=== PATIENT | male | born 1980 | race Caucasian/White ===

== ENCOUNTER 2024-11-16 09:48 | Outpatient (AMB) | payer BC, SELFPAY ==
--- NOTE | 2024-11-16 10:09 | A.OFFPC_ITS ---
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 ?? Prior PCP:? Dr Rivas @ [facility] Last office visit/CPE:? about a year for CPE Acute issue(s):? Watching BP. Was on HCTZ in past. Need Rheumatology referral Est Care ?? PMHx:? HTN, HLD, RA SurgHx:?R 4th finger repair after crush injury FHx:? Mom: Macular degeneration. Dad: Dementia. SocHx: Nonsmoker of cigs. EtOH: Very infreq. 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 1. Little interest or pleasure in doing things: not at all 2. Feeling down, depressed, or hopeless: not at all 3. Trouble falling or staying asleep, or sleeping too much: not at all 4. Feeling tired or having little energy: not at all 5. Poor appetite or overeating: not at all 6. Feeling bad about yourself - or that you are a failure or have let yourself or your family down: not at all 7. Trouble concentrating on things, such as reading the newspaper or watching television: not at all 8. Moving or speaking so slowly that other people could have noticed. Or the opposite - being so fidgety or restless that you have been moving around a lot more than usual: not at all 9. Thoughts that you would be better off or of hurting yourself in some way: not at all Total score: 0 Depression Screening Interpretation: Negative Depression Screening Done: Yes 52696 - PHQ-9 Billing: Yes Source: Developed by Drs. Kush Eckert, Vanna Roman, Kalia Asencio and colleagues, with an educational tj from [employer]. Thrive Questionnaire Date Thrive assessed: 11/16/24 I am a: Patient What is your living situation today?: I have a steady place to live Within the past 12 months, did the food you bought not last and you didn't have the money to get more?: Never true Within the past 12 months, did you worry whether your food would run out before you got money to buy more?: Never true Do you have trouble paying for medicines?: No Do you have trouble getting transportation to medical appointments?: No Do you have trouble paying your heating and electricity bill?: No Do you have trouble taking care of your child, family member or friend?: No Do you have trouble with day-to-day activities such as bathing, preparing meals, shopping, managing finances, etc.?: No Are you currently unemployed and looking for a job?: No Are you interested in more education?: No Please select the resources that you would like help with: None Currently or been in a relationship where the following occur: No concerns reported THRIVE Score: 0 AUDIT C Alcohol Use Questionnaire (AUDIT-C) 1. How often do you have a drink containing alcohol?: Never 3. How often do you have six or more drinks on one occasion?: Never Total Score: 0 Score Reviewed/Action Taken: Yes SPEEDY-7 AMB Questionnaire SPEEDY-7 Date SPEEDY - 7 assessed: 11/16/24 Feeling nervous, anxious, or on edge: 0 = Not at all Not being able to stop or control worryin = Not at all Worrying too much about different things: 0 = Not at all Trouble relaxin = Not at all Being so restless that it is hard to sit still: 0 = Not at all Becoming easily annoyed or irritable: 1 = Several days Feeling afraid as if something awful might happen: 0 = Not at all Total SPEEDY-7 score (0-4 normal; 5-9 mild; 10-14 moderate; 15-21 severe): 1 Source: Developed by Drs. Kush Eckert, Vanna Roman, Kalia Asencio and colleagues, with an educational tj from [employer]. SPEEDY-7 Assessment Billing SPEEDY-7 Assessment Tool: SPEEDY-7 Assessment 45540 Review of Systems Const Denies chills, Denies fatigue, Denies fever(s), Denies headache(s) and Denies weakness Eyes Denies change in vision ENT Denies dizziness and Denies headache(s) Card Denies chest pain, Denies lightheadedness, Denies dyspnea and Denies other (Pa lpitations) Resp Denies cough, Denies dyspnea, Denies wheezing and Denies other ( shortness of breath) GI Denies abdominal pain, Denies melena, Denies hematochezia, Denies change in bowel habits, Denies dyspepsia and Denies nausea Denies hematuria and Denies dysuria Musc Denies numbness and Denies tingling Skin/Breast Denies rash, Denies unusual bruising and Denies wounds Neuro Denies dizziness, Denies headache(s), Denies numbness, Denies Sensory deficit (Neuro), Denies tingling, Denies paresthesias and Denies weakness Psych Denies anxiety and Denies depression Endo Denies fatigue Thien/Lymph Denies easy bleeding and Denies easy bruising Aller/Immun Denies wheezing Physical exam (Primary Care) Tobacco/Smoking Status: Tobacco use Status Tobacco use date assessed 11/16/24 11/16/24 10:14 Patient Tobacco Use Status Never used Tobacco 11/16/24 10:21 PHQ-9: PHQ-9 Score PHQ-9: Total score 0 11/16/24 10:14 Depression Screening Interpretation: Negative Thrive Assessment: Date of Thrive Assessment Date Thrive assessed 11/10/24 11/16/24 10:14 Currently or been in a relationship where the following occur: No concerns reported Const General: no acute distress and well developed Nutritional Appearance: well nourished Orientation/consciousness: patient oriented x3 HENMT Head: Yes normocephalic and Yes atraumatic Ears: hearing grossly normal bilaterally and TM's normal bilaterally General nose exam: Normal external nose present and Normal nares present Mouth: Normal oral and palatal mucosa present and moist mucous membranes Teeth and gingiva: dentition normal Throat: Yes posterior oropharynx normal Eyes General: appearance normal, both eyes and all related structures Pupils: Equal, round and reactive pupils present EOM: EOMs intact bilaterally Neck Neck: Yes normal visual inspection, Yes no lymphadenopathy and Yes trachea midline Thyroid: Thyroid normal Carotids: no bruits Lymphatic: no lymphadenopathy noted Chest Chest palpation & inspection: normal inspection of the chest Resp Effort & Inspection: normal respiratory effort Auscultation: clear to auscultation bilaterally Cardio Rate: regular rate Rhythm: regular rhythm Heart sounds: S1 normal heart sound present, S2 normal heart sound present, no gallops, no murmurs and no rubs Bruits: no abdominal aortic bruits and no carotid bruits GI Palpation (GI): No Abdominal aortic bruit present, Soft to palpation, nontender, No hepatosplenomegaly present and No Rebound tenderness present Auscultation: normal bowel sounds General: Yes no CVA tenderness Back/Spine/Pelvis Back: no CVA tenderness Cervical Spine: cervical ROM normal and No Cervical spine tenderness Thoracic/Lumbar Spine: thoraco-lumbar ROM normal, No pain with thoraco-lumbar ROM, No thoracic spinal tenderness and No lumbar spinal tenderness Skin Lesions: no lesions Rashes: no rashes Trauma: no lacerations or abrasions Wounds: no wounds Nails: normal Neuro General: patient oriented x3 and gait normal Cranial nerves: Yes Equal, round and reactive pupils present Cognition (Neuro): normal cognition Gait exam (Neuro): Normal gait present Motor exam (neuro): 5/5 motor strength present throughout Sensory Exam: No Sensory deficit (Neuro) Deep tendon reflexes (DTR's): Right patellar reflex intensity grade: 2+ and Left patellar reflex intensity grade: 2+ Extrem General: Yes normal to inspection and No edema Psych Appearance: grossly normal Affect: normal affect Attitude: cooperative Thought process: Normal thought process present Coding Level of Care Code New Pt Level 4 (07190) Diagnoses High blood pressure I10 Rheumatoid arthritis M06.9 Hyperlipidemia E78.5 Screening for prostate cancer Z12.5 Laboratory exam ordered as part of routine general medical examination Z00.00 Adult general medical exam Z00.00 Additional Codes SPEEDY-7 Assessment Billing - SPEEDY-7 Assessment Tool: SPEEDY-7 Assessment 95564 ([id number]) PHQ-9 - 03368 - PHQ-9 Billing: Yes ([id number]) Assessment & Plan Assessment & Plan (1) High blood pressure: Code(s): I10 - Essential (primary) hypertension Category: Medical Plan: Patient?notes?history?of?hypertension?though?blood?pressure is?within?normal?range?without?medication?today. He?will?return?in?about?a?week?for?nurse?visit?to?recheck?blood?pressure (2) Rheumatoid arthritis: Code(s): M06.9 - Rheumatoid arthritis, unspecified Category: Medical Plan: Patient?notes?history?of?rheumatoid?arthritis?and?had?been?treated?in?[facility] He?would?like?a?new?referral?to?a?rocket propellant plant supervisor Referred (3) Hyperlipidemia: Code(s): E78.5 - Hyperlipidemia, unspecified Category: Medical Plan: Patient?notes?history?of?hyperlipidemia?and?was?on?atorvastatin?in?the?past Checking?lipids (4) Screening for prostate cancer: Code(s): Z12.5 - Encounter for screening for malignant neoplasm of prostate Category: Medical Plan: Checking?PSA (5) Laboratory exam ordered as part of routine general medical examination: Code(s): Z00.00 - Encounter for general adult medical examination without abnormal findings Category: Medical Plan: Check labs (6) Adult general medical exam: Code(s): Z00.00 - Encounter for general adult medical examination without abnormal findings Category: Medical Plan: 44-year-old?male?presents?as?new?patient?for?an?extended?exam Encouraged?healthy?diet?with?active?lifestyle?and?plenty?of?exercise Orders: Orders Prostate Specific Antigen Scr Today Z12.5 - Encounter for screening for malignant neoplasm of prostate Lipid Panel Today Z00.00 - Encounter for general adult medical examination without abnormal findings UA CC w/rflx Micro + Cult Today Z00.00 - Encounter for general adult medical examination without abnormal findings Comprehensive [place]. Panel Fast Today Z00.00 - Encounter for general adult medical examination without abnormal findings Microalbumin, Random (w Creat) Today I10 - Essential (primary) hypertension TSH reflex Free T4 Today Z00.00 - Encounter for general adult medical examination without abnormal findings Referrals Rheumatology Referral M06.9 - Rheumatoid arthritis, unspecified
[2024-11-16 10:22] VITALS: BP 110/70; PULSE 75; RESP 14; TEMP 36.7; BMI 28.6
== END 2024-11-16 10:47 | disposition home or self-care (01) ==
LOC: HO.HMCFM 09:49
PROVIDERS: PCP Family Medicine; Visit Provider Family Medicine
DX: I10 Essential (primary) hypertension (principal); M06.9 Rheumatoid arthritis, unspecified; E78.5 Hyperlipidemia, unspecified; Z12.5 Encounter for screening for malignant neoplasm of prostate; Z00.00 Encounter for general adult medical examination without abnormal findings

== ENCOUNTER → 2024-11-16 09:48 | Outpatient (BNVA) | payer BC, SELFPAY | PROVIDERS: PCP Family Medicine; Visit Provider Family Medicine | DX: Z00.00 Encounter for general adult medical examination without abnormal findings (principal); I10 Essential (primary) hypertension; M06.9 Rheumatoid arthritis, unspecified; E78.5 Hyperlipidemia, unspecified | CPT/HCPCS: 96127 ==

== ENCOUNTER → 2024-11-21 09:53 | Outpatient (BNVA) | payer BC, SELFPAY | PROVIDERS: PCP Family Medicine; Visit Provider Family Medicine | DX: Z13.89 Encounter for screening for other disorder (principal) ==

== ENCOUNTER 2024-11-30 10:48 | Outpatient (REF) | payer BC, SELFPAY ==
[2024-11-30 14:17] LABS: Appearance Urine Clear; Color Urine Yellow; Glucose Urine UA Negative (Negative); Leukocyte Esterase Urine Negative (Negative); Nitrite Urine Negative (Negative); PH 5.5 (5.0-9.0); Urine Blood Negative (Negative); Urine Ketones Negative (Negative); Urine Protein Negative (Neg-Trace)
[2024-11-30 14:37] LABS: Creatinine Urine 203.69 mg/dL; Microalbum/Creatinine Ratio Ur 11.2 ug/mg cr (<30)
[2024-11-30 14:45] LABS: Alanine Aminotransferase 17 U/L (0-40); Alkaline Phosphatase 69 U/L (39-117); Aspartate Amino Transferase 21 U/L (5-37); Bilirubin Total 0.6 mg/dL (0.0-1.0); Blood Urea Nitrogen 10 mg/dL (9-16); Calcium 8.7 mg/dL (8.4-10.2); Cholesterol 196 mg/dL (<200); Estimated Glomerular Filt Rate > 60; Glucose Fasting 77 mg/dL (60-99); HDL Cholesterol 32 mg/dL (>40); LDL Cholesterol Calculated 139 mg/dL (<100); Total Protein 6.5 g/dL (6.5-8.0); Triglycerides 126 mg/dL (<150)
[2024-11-30 14:56] LABS: Prostate Specific Antigen Scr 0.54 ng/mL (<0.05-4.0)
[2024-11-30 15:01] LABS: Anion Gap 9 (12-20); Carbon Dioxide 30 mmol/L (22-29); Chloride 106 mmol/L (96-108); Potassium 3.5 mmol/L (3.3-5.1); Sodium 141 mmol/L (135-145)
[2024-11-30 15:08] LABS: TSH reflex Free T4 1.37 uIU/mL (0.32-4.0)
== END 2024-11-30 10:49 | disposition home or self-care (01) ==
LOC: HO.WFDLDS 10:48
PROVIDERS: Visit Provider Family Medicine
DX: Z00.00 Encounter for general adult medical examination without abnormal findings (principal); I10 Essential (primary) hypertension; Z12.5 Encounter for screening for malignant neoplasm of prostate
CPT/HCPCS: 36415; 80053; 80061; 81003; 82043; 82570; 84153; 84443

== ENCOUNTER 2024-12-07 09:58 | Outpatient (AMB) | payer BC, SELFPAY ==
--- NOTE | 2024-12-07 09:57 | A.OFFPC_ITS ---
Intake Visit Reasons: f/u CPE-labs via telemed Allergies No Known Allergies Allergy (Verified 12/07/24 09:57) Medication List - Last Reconciled 12/07/24 by David Christianson MD No Known Home Meds Tobacco use date assessed: 11/16/24 Dental Screening Dental Screen Date: 11/16/24 HPI f/u CPE-labs via telemed HPI Details 44 y/o male presents to f/u CPE-labs via telemedicine. Labs drawn 11/30/24. Reviewed labs with pt. Triglycerides 126. TC 196. LDL 139. HDL low at 32. PSA 0.54. 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 Kush Eckert, Vanna Roman, Kalia Asencio and colleagues, with an educational tj from [email or web address]. Review of Systems Const Denies chills, Denies fatigue, Denies fever(s), Denies headache(s) and Denies weakness ENT Denies dizziness and Denies headache(s) Card Denies dyspnea Resp Denies cough, Denies dyspnea, Denies wheezing and Denies other (shortness of breath) Musc Denies numbness and Denies tingling Neuro Denies dizziness, Denies headache(s), Denies numbness, Denies tingling and Denies weakness Psych Denies anxiety and Denies depression Endo Denies fatigue Aller/Immun Denies wheezing Physical exam (Primary Care) Tobacco/Smoking Status: Tobacco use Status Tobacco use date assessed 11/16/24 12/07/24 09:57 Patient Tobacco Use Status Never used Tobacco 12/07/24 09:57 e-Cigarette/Vaping Use Never Used 12/07/24 09:57 Thrive Assessment: Date of Thrive Assessment Date Thrive assessed 11/10/24 12/07/24 09:57 Telehealth Telehealth Telehealth Platform: Telephone Location of provider rendering services: practice address Location of patient: address on file Patient Identification confirmed using: Name, : Yes Telehealth method: voice only Patient verbally consented to treatment: Yes Patient verbally consented to billing insurance company: Yes Patient informed of any privacy concerns related to visit: Yes Minutes spent on Phone/Video with Pt.: 7 Coding Level of Care Code Tele Est Pt Level 2 (79683) Diagnoses Hyperlipidemia E78.5 Low HDL (under 40) E78.6 Allergies T78.40XA Assessment & Plan Assessment & Plan (1) Hyperlipidemia: Code(s): E78.5 - Hyperlipidemia, unspecified Category: Medical Plan: LDL?cholesterol?is?too?high Advised?a?diet?lower?in?saturated?fats?and?cholesterol Continue?exercise Will?recheck?prior?to?next?visit (2) Low HDL (under 40): Code(s): E78.6 - Lipoprotein deficiency Category: Medical Plan: Encouraged?exercise?in?shifting?fats?in?diet?to?more?[place]?threes (3) Allergies: Code(s): T78.40XA - Allergy, unspecified, initial encounter Category: Medical Plan: Try?nasal?saline He?will?let?me?know?if?he?is?still?have?difficulty Orders: Orders Lipid Panel Today E78.6 - Lipoprotein deficiency, Z00.00 - Encounter for general adult medical examination without abnormal findings Comprehensive [place]. Panel Fast Today E78.6 - Lipoprotein deficiency, Z00.00 - Encounter for general adult medical examination without abnormal findings
== END 2024-12-07 17:05 | disposition home or self-care (01) ==
LOC: HO.HMCFM 09:58
PROVIDERS: PCP Family Medicine; Visit Provider Family Medicine
DX: E78.5 Hyperlipidemia, unspecified (principal); E78.6 Lipoprotein deficiency; T78.40XA Allergy, unspecified, initial encounter

== ENCOUNTER → 2024-12-07 09:58 | Outpatient (BNVA) | payer BC, SELFPAY | PROVIDERS: PCP Family Medicine; Visit Provider Family Medicine | DX: Z13.89 Encounter for screening for other disorder (principal) ==

== ENCOUNTER 2025-03-30 12:45 | Outpatient (REF) | payer BC, SELFPAY ==
[2025-03-30 18:01] LABS: Alanine Aminotransferase 25 U/L (0-40); Albumin Level 4.2 g/dL (3.5-5.0); Alkaline Phosphatase 63 U/L (39-117); Anion Gap 11 (12-20); Aspartate Amino Transferase 30 U/L (5-37); Blood Urea Nitrogen 11 mg/dL (9-16); Calcium 8.6 mg/dL (8.4-10.2); Carbon Dioxide 28 mmol/L (22-29); Chloride 105 mmol/L (96-108); Cholesterol 202 mg/dL (<200); Estimated Glomerular Filt Rate > 60; HDL Cholesterol 32 mg/dL (>40); Potassium 4.2 mmol/L (3.3-5.1); Sodium 140 mmol/L (135-145); Total Protein 6.5 g/dL (6.5-8.0); Triglycerides 96 mg/dL (<150)
== END 2025-03-30 12:46 | disposition home or self-care (01) ==
LOC: HO.WFDLDS 12:45
PROVIDERS: Visit Provider Family Medicine
DX: Z00.00 Encounter for general adult medical examination without abnormal findings (principal); E78.6 Lipoprotein deficiency
CPT/HCPCS: 36415; 80053; 80061

== ENCOUNTER 2025-04-09 09:28 | Outpatient (AMB) | payer BC, SELFPAY ==
--- NOTE | 2025-04-09 09:31 | MHC.PC.OV ---
Vital Signs 04/09/25 09:32 Height 5 ft 11 in Weight 198 lb BMI 27.6 BP 134/98 H Blood Pressure Location Rt brachial Position Sitting Pulse 88 Pulse Source Pulse Oximeter Pulse Oximetry (%) 99 Oxygen Delivery Method Room Air Intake Visit Reasons: f/u HLD Allergies No Known Allergies Allergy (Verified 04/09/25 09:34) Medication List - Last Reconciled 04/09/25 by David Christianson MD No Known Home Meds Tobacco use date assessed: 04/09/25 Dental Screening Dental Screen Date: 04/09/25 Did you have a dental visit in the last 12 months?: Yes Did you have a dental problem in the last 6 months where you did not have access to dental care?: No Was dental information given to patient?: Patient has dentist HPI f/u HLD HPI Details 44 y/o male presents to f/u HLD. Labs drawn 03/30/25. Reviewed labs with pt. Fasting glucose 109. Triglycerides 96. TC 202. LDL worsened from o 151. HDL low at 32. Blood pressure today elevated at 134/98, 88p. 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 1. Little interest or pleasure in doing things: not at all 2. Feeling down, depressed, or hopeless: not at all 3. Trouble falling or staying asleep, or sleeping too much: not at all 4. Feeling tired or having little energy: not at all 5. Poor appetite or overeating: not at all 6. Feeling bad about yourself - or that you are a failure or have let yourself or your family down: not at all 7. Trouble concentrating on things, such as reading the newspaper or watching television: not at all 8. Moving or speaking so slowly that other people could have noticed. Or the opposite - being so fidgety or restless that you have been moving around a lot more than usual: not at all 9. Thoughts that you would be better off or of hurting yourself in some way: not at all Total score: 0 Depression Screening Interpretation: Negative Depression Screening Done: Yes Source: Developed by Drs. Kush Eckert, Vanna Roman, Kalia Asencio and colleagues, with an educational tj from [employer]. Thrive Questionnaire Date Thrive assessed: 11/10/24 I am a: Patient What is your living situation today?: I have a steady place to live Within the past 12 months, did the food you bought not last and you didn't have the money to get more?: Never true Within the past 12 months, did you worry whether your food would run out before you got money to buy more?: Never true Do you have trouble paying for medicines?: No Do you have trouble getting transportation to medical appointments?: No Do you have trouble paying your heating and electricity bill?: No Do you have trouble taking care of your child, family member or friend?: No Do you have trouble with day-to-day activities such as bathing, preparing meals, shopping, managing finances, etc.?: No Are you currently unemployed and looking for a job?: No Are you interested in more education?: No Please select the resources that you would like help with: None Currently or been in a relationship where the following occur: No concerns reported THRIVE Score: 0 AUDIT C Alcohol Use Questionnaire (AUDIT-C) 1. How often do you have a drink containing alcohol?: Never 3. How often do you have six or more drinks on one occasion?: Never Total Score: 0 SPEEDY-7 AMB Questionnaire SPEEDY-7 Date SPEEDY - 7 assessed: 11/16/24 Feeling nervous, anxious, or on edge: 0 = Not at all Not being able to stop or control worryin = Not at all Worrying too much about different things: 0 = Not at all Trouble relaxin = Not at all Being so restless that it is hard to sit still: 0 = Not at all Becoming easily annoyed or irritable: 1 = Several days Feeling afraid as if something awful might happen: 0 = Not at all Total SPEEDY-7 score (0-4 normal; 5-9 mild; 10-14 moderate; 15-21 severe): 1 Source: Developed by Drs. Kush Eckert, Vanna Roman, Kalia Asencio and colleagues, with an educational tj from [employer]. Review of Systems Const Denies chills, Denies fatigue, Denies fever(s), Denies headache(s) and Denies weakness ENT Denies dizziness and Denies headache(s) Card Denies dyspnea Resp Denies cough, Denies dyspnea, Denies wheezing and Denies other (shortness of breath) Musc Denies numbness and Denies tingling Neuro Denies dizziness, Denies headache(s), Denies numbness, Denies tingling and Denies weakness Psych Denies anxiety and Denies depression Endo Denies fatigue Aller/Immun Denies wheezing Physical exam (Primary Care) Vital Signs: Last Vital Signs Pulse 88 04/09/25 09:32 BP 134/98 H 04/09/25 09:32 Pulse Ox 99 04/09/25 09:32 Oxygen Delivery Method Room Air 04/09/25 09:32 BMI result Body Mass Index 27.6 Tobacco/Smoking Status: Tobacco use Status Tobacco use date assessed 04/09/25 04/09/25 09:35 Patient Tobacco Use Status Never used Tobacco 04/09/25 09:35 e-Cigarette/Vaping Use Never Used 04/09/25 09:35 PHQ-9: PHQ-9 Score PHQ-9: Total score 0 04/09/25 09:38 Depression Screening Interpretation: Negative Thrive Assessment: Date of Thrive Assessment Date Thrive assessed 11/10/24 04/09/25 09:35 Currently or been in a relationship where the following occur: No concerns reported Const General: well developed; No acute distress Nutritional Appearance: well nourished Orientation/consciousness: patient oriented x3 HENMT Head: Yes normocephalic and Yes atraumatic Eyes General: appearance normal, both eyes and all related structures Pupils: Equal, round and reactive pupils present EOM: EOMs intact bilaterally Resp Effort & Inspection: normal respiratory effort Neuro General: patient oriented x3 and gait normal Cranial nerves: Yes Equal, round and reactive pupils present Psych Affect: normal affect Coding Level of Care Code Est Pt Level 4 (89853) Diagnoses Hyperlipidemia E78.5 High blood pressure I10 Low HDL (under 40) E78.6 Elevated fasting glucose R73.01 Assessment & Plan Assessment & Plan (1) Hyperlipidemia: Code(s): E78.5 - Hyperlipidemia, unspecified Category: Medical Plan: LDL cholesterol is due to high and HDL is low Start atorvastatin Encouraged exercise and diet low in saturated fats and cholesterol (2) High blood pressure: Code(s): I10 - Essential (primary) hypertension Category: Medical Plan: Blood pressure is elevated and patient notes that blood pressures are high at home as well Start losartan (3) Low HDL (under 40): Code(s): E78.6 - Lipoprotein deficiency Category: Medical Plan: As above (4) Elevated fasting glucose: Code(s): R73.01 - Impaired fasting glucose Category: Medical Plan: Mildly elevated fasting blood sugar. Will recheck this along with an A1c at his next blood draw Orders: Orders Lipid Panel Today E78.6 - Lipoprotein deficiency, Z00.00 - Encounter for general adult medical examination without abnormal findings Comprehensive [place]. Panel Fast Today E78.6 - Lipoprotein deficiency, Z00.00 - Encounter for general adult medical examination without abnormal findings Microalbumin, Random (w Creat) Today I10 - Essential (primary) hypertension Hemoglobin A1c Today R73.01 - Impaired fasting glucose Medications: New losartan 50 mg PO DAILY 90 tabs 3RF 90 days atorvastatin (Lipitor) 20 mg PO BEDTIME 90 tabs 3RF 90 days
[2025-04-09 09:32] VITALS: BP 134/98; PULSE 88; O2SAT 99; BMI 27.6
== END 2025-04-09 10:09 | disposition home or self-care (01) ==
LOC: HO.HMCFM 09:28
PROVIDERS: PCP Family Medicine; Visit Provider Family Medicine
DX: E78.5 Hyperlipidemia, unspecified (principal); I10 Essential (primary) hypertension; E78.6 Lipoprotein deficiency; R73.01 Impaired fasting glucose

== ENCOUNTER 2025-07-03 10:50 | Outpatient (AMB) | payer BC, SELFPAY ==
--- NOTE | 2025-07-03 11:02 | MHC.OFFVIS ---
Vital Signs 07/03/25 11:03 Height 5 ft 11 in Weight 194 lb 3.636 oz BMI 27.1 BP 132/72 Blood Pressure Location Lt brachial Position Sitting Pulse 75 Pulse Source Pulse Oximeter Pulse Oximetry (%) 99 Oxygen Delivery Method Room Air Intake Visit Reasons: RA Intake Note: New patient presents today for a RA visit. He was referred by PCP, Dr. Christianson. Property Damage Claims Adjustor Required: No Accompanied by: Self / Same As Patient Allergies shellfish derived (shellfish) Allergy (Mild, Verified 07/03/25 11:08) lip swelling HPI HPI RA: Details: New patient visit for evaluation of rheumatoid arthritis. He was diagnosed with RA at [facility] 3-4 years ago. He was treated with diclofenac gel. He denies being on DMARDs. He initially had pain and swelling in DIPs, and left 5th PIP. He is no longer able to bend left 5th finger. He has right thumb IP pain with nodule formed more recently. He takes ibuprofen 600mg-800 mg PRN few times a week. He uses diclofenac gel 1% 1-2 times every few days. No family history of rheumatological disease. Work at [employer]. 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 Non smoker. Rarely drinks alcohol. He fractured right 4th tip of finger in the past treated with splinting. Medication list and medical history reviewed with patient. 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 Good respiratory effort Skin: No lesions seen MSK:Tender right 5th and 2nd PIP. Right 5th PIP mild synovitis. Multiple [place] nodes of bilateral hands. He has a fluctuant cyst present right IP joint. He is able to make a fist. Slight ulnar deviation of left fingers. Normal range of motion of upper extremities and lower extremities. No MTP tenderness. Assessment & Plan Assessment & Plan (1) Rheumatoid arthritis: Comment: By history. DMARD naive. Clinically, he has mild synovitis of right 5th PIP, which could also be related to osteoarthritis. He has clinical malena osteoarthritis on exam. Code(s): M06.9 - Rheumatoid arthritis, unspecified Category: Medical Plan: X-ray bilateral hands ordered Labs ordered for evaluation of inflammatory arthritis OT ordered to improve range of motion and strengthen hands He will continue to use ibuprofen 600 mg prn sparingly joint pain. We discussed regular use of NSAIDs can contribute to hypertension as a side effect Return to clinic in 3 months or sooner if needed (2) Osteoarthritis of hands, bilateral: Comment: Clinical diagnosis. We discussed diagnosis and management. Code(s): M19.041 - Primary osteoarthritis, right hand; M19.042 - Primary osteoarthritis, left hand Category: Medical Plan: OT ordered to improve range of motion and hand strength He will continue to use ibuprofen 600 mg prn sparingly joint pain. We discussed regular use of NSAIDs can contribute to hypertension as a side effect Bilateral hand x-rays ordered Return to clinic in 3 months or sooner if needed Orders: Orders XR Foot Juan 3V Today M06.9 - Rheumatoid arthritis, unspecified Alanine Aminotransferase Today M06.9 - Rheumatoid arthritis, unspecified Aspartate Amino Transferase Today M06.9 - Rheumatoid arthritis, unspecified C Reactive Protein Today M06.9 - Rheumatoid arthritis, unspecified, Z79.899 - Other fci (current) drug therapy Complete Blood Count Auto Diff Today M06.9 - Rheumatoid arthritis, unspecified Creatinine Today M06.9 - Rheumatoid arthritis, unspecified Rheumatoid Factor Today M06.9 - Rheumatoid arthritis, unspecified OT Evaluation and Treatment Today M19.041 - Primary osteoarthritis, right hand, M19.042 - Primary osteoarthritis, left hand XR Hand Juan 2V Today M06.9 - Rheumatoid arthritis, unspecified Cyclic Citrullinated Peptide Today M06.9 - Rheumatoid arthritis, unspecified Erythrocyte Sedimentation Rate Today M06.9 - Rheumatoid arthritis, unspecified, Z79.899 - Other longwall foreman (current) drug therapy Hepatitis B,C Profile Today M06.9 - Rheumatoid arthritis, unspecified Coding Level of Care Code New Pt Level 4 (36511) Diagnoses Rheumatoid arthritis M06.9 Osteoarthritis of hands, bilateral M19.041; M19.042
[2025-07-03 11:03] VITALS: BP 132/72; PULSE 75; O2SAT 99; BMI 27.1
== END 2025-07-03 11:47 | disposition home or self-care (01) ==
LOC: HO.RHES 10:51
PROVIDERS: PCP Family Medicine; Visit Provider Internal Medicine Rheumatology
DX: M06.9 Rheumatoid arthritis, unspecified (principal); M19.041 Primary osteoarthritis, right hand; M19.042 Primary osteoarthritis, left hand
CPT/HCPCS: 99204

== ENCOUNTER 2025-07-03 10:50 | Outpatient (REF) | payer BC, SELFPAY ==
[2025-07-03 18:03] LABS: MANUAL DIFF FLAG NO
[2025-07-03 18:27] LABS: Hematocrit 44.3 % (42.0-52.0); Hemoglobin 15.1 g/dl (14.0-18.0); Imm Gran Abs Auto 0.01 X10*3/uL (0.00-0.03); Imm Gran Pct Auto 0.2 % (0.0-0.4); Lymphocytes Absolute Auto 1.8 X10*3/uL (1.2-4.9); Mean Corpuscular HGB Conc 34.1 g/dl (31.0-36.0); Mean Corpuscular Hemoglobin 29.9 pg (27.0-33.0); Mean Corpuscular Volume 87.7 fL (80.0-98.0); NRBC Abs Auto 0.000 X10*3/uL (0.0-0.012); NRBC Pct Auto 0.0 /100WBC (0.0-0.2); Platelet Count 240 X10*3/uL (160-400); Red Blood Count 5.05 X10*6/uL (4.60-5.80); White Blood Count 5.6 X10*3/uL (4.8-10.8)
[2025-07-03 18:35] LABS: Alanine Aminotransferase 45 U/L (0-40); Aspartate Amino Transferase 32 U/L (5-37); Estimated Glomerular Filt Rate > 60
[2025-07-04 07:04] LABS: HBS Num1 5.28 mIU/mL (0-7.99); HBc Num1 0.16 S/CO (0.00-0.79); HBsAGNum1 0.42 S/CO (0.00-0.99); Hepatitis B Surface Antigen Negative (Negative); ~HepC Num1 0.13 S/CO (0.00-0.79); ~Hepatitis B Surface Antibody NONREACTIVE (Nonreactive); ~Hepatitis C Antibody Nonreactive (Nonreactive)
== END 2025-07-03 10:51 | disposition home or self-care (01) ==
LOC: HO.HKASLDS 10:50
PROVIDERS: PCP Family Medicine; Visit Provider Internal Medicine Rheumatology
DX: M19.041 Primary osteoarthritis, right hand (principal); M19.042 Primary osteoarthritis, left hand; M06.9 Rheumatoid arthritis, unspecified; I10 Essential (primary) hypertension; Z79.899 Other long term (current) drug therapy
CPT/HCPCS: 36415; 82565; 84450; 84460; 85025; 85652; 86140; 86200; 86431; 86704; 86706; 86803; 87340

== ENCOUNTER 2025-07-04 11:04 | Outpatient (REF) | payer BC, SELFPAY ==
--- NOTE | ~2025-07-04 | XR_ITS ---
EXAMINATION: X-ray bilateral feet CLINICAL INFORMATION: Rheumatoid arthritis COMPARISON: None TECHNIQUE: Right foot 3 views. Left foot 3 views. FINDINGS: Right foot: No fracture or dislocation. No significant joint space narrowing or marginal osteophytes. No osseous erosion. No abnormal soft tissue calcification. Small posterior calcaneal enthesopathy. Left foot: No fracture or dislocation. No significant joint space narrowing or marginal osteophytes. No osseous erosion. No abnormal soft tissue calcification. Plantar and posterior calcaneal enthesopathy. XR/XR Foot Juan 3V IMPRESSION: No acute findings Electronically signed by: Salvador Fuentes MD 07/04/2025 12:20 PM [facility]
--- NOTE | ~2025-07-04 | XR_ITS ---
EXAMINATION: XR HAND, bilateral CLINICAL INFORMATION: M06.9 - Rheumatoid arthritis, unspecified COMPARISON: None available. TECHNIQUE: 3 views of each hand FINDINGS: Left hand: Bone alignment is normal. No fracture or dislocation. Severe osteoarthritis at the IP joints, greatest involving the DIP joints of the second through fifth fingers. No erosions. Soft tissues are unremarkable. Right hand: Bone alignment is normal. No fracture or dislocation. Severe osteoarthritis at the IP joints, greatest involving the DIP joints of the second through fifth fingers. No erosions. Soft tissues are normal. XR/XR Hand Juan 2V IMPRESSION: Severe osteoarthritis at the IP joints. Electronically signed by: Micki Sanon MD 07/04/2025 12:59 PM EST
== END 2025-07-04 11:05 | disposition home or self-care (01) ==
LOC: HO.HMGCLDS 11:04
PROVIDERS: PCP Family Medicine; Visit Provider Internal Medicine Rheumatology
DX: M06.9 Rheumatoid arthritis, unspecified (principal)
CPT/HCPCS: 73120; 73630

== ENCOUNTER → 2025-07-04 11:07 | Outpatient (BNV) | payer BC, SELFPAY | PROVIDERS: PCP Family Medicine; Visit Provider Radiology Diagnostic Ultrasound | DX: M06.9 Rheumatoid arthritis, unspecified (principal); M19.041 Primary osteoarthritis, right hand; M19.042 Primary osteoarthritis, left hand | CPT/HCPCS: 73120; 73630 ==

== ENCOUNTER 2025-07-20 11:22 | Outpatient (AMB) | payer BC, SELFPAY ==
--- NOTE | 2025-07-20 11:50 | A.OFFPC_ITS ---
Vital Signs 07/20/25 11:54 Height 5 ft 11 in Weight 196 lb BMI 27.3 BP 126/78 Blood Pressure Location Rt brachial Position Sitting Respiration 15 Pulse 82 Pulse Source Pulse Oximeter Temp 97.1 F Temp Source Temporal Artery Scan Pulse Oximetry (%) 99 Oxygen Delivery Method Room Air Intake Visit Reasons: Follow up on my cholesterol and blood pressure Intake Note: Nick presents in the office today to follow up to his cholesterol and BP. 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 Required: No Allergies shellfish derived (shellfish) Allergy (Mild, Verified 07/20/25 11:53) lip swelling Medication List - Last Reconciled 07/20/25 by David Christianson MD atorvastatin (Lipitor) 20 mg PO BEDTIME 90 days losartan 50 mg PO DAILY 90 days Tobacco use date assessed: 07/20/25 Dental Screening Dental Screen Date: 07/20/25 Did you have a dental visit in the last 12 months?: Yes Did you have a dental problem in the last 6 months where you did not have access to dental care?: No Was dental information given to patient?: Patient has dentist HPI Follow up on my cholesterol and blood pressure HPI Details 45 y/o male presents to f/u labs, blood pressure. BP today 126/78, 82p. He is on losartan 50mg daily. No recent labs to review. Hx of elevated fasting glucose. A1c 5.1%. 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 Current occupational exposures/hazards: No Cognitive needs: No Hearing needs: No Vision needs: Yes Questionnaire Thrive Questionnaire Date Thrive assessed: 11/10/24 I am a: Patient What is your living situation today?: I have a steady place to live Within the past 12 months, did the food you bought not last and you didn't have the money to get more?: Never true Within the past 12 months, did you worry whether your food would run out before you got money to buy more?: Never true Do you have trouble paying for medicines?: No Do you have trouble getting transportation to medical appointments?: No Do you have trouble paying your heating and electricity bill?: No Do you have trouble taking care of your child, family member or friend?: No Do you have trouble with day-to-day activities such as bathing, preparing meals, shopping, managing finances, etc.?: No Are you currently unemployed and looking for a job?: No Are you interested in more education?: No Please select the resources that you would like help with: None Currently or been in a relationship where the following occur: No concerns reported THRIVE Score: 0 SPEEDY-7 AMB Questionnaire SPEEDY-7 Date SPEEDY - 7 assessed: 11/16/24 Source: Developed by Drs. Kush Eckert, Vanna Roman, Kalia Asencio and colleagues, with an educational tj from [employer]. Review of Systems Const Denies chills, Denies fatigue, Denies fever(s), Denies headache(s) and Denies weakness ENT Denies dizziness and Denies headache(s) Card Denies chest pain, Denies lightheadedness, Denies dyspnea and Denies other (Palpitations) Resp Denies cough, Denies dyspnea, Denies wheezing and Denies other ( shortness of breath) Musc Denies numbness and Denies tingling Neuro Denies dizziness, Denies headache(s), Denies numbness, Denies tingling, Denies paresthesias and Denies weakness Psych Denies anxiety and Denies depression Endo Denies fatigue Aller/Immun Denies wheezing Physical exam (Primary Care) Vital Signs: Last Vital Signs Temp 97.1 F 07/20/25 11:54 Pulse 82 07/20/25 11:54 Resp 15 07/20/25 11:54 BP 126/78 07/20/25 11:54 Pulse Ox 99 07/20/25 11:54 Oxygen Delivery Method Room Air 07/20/25 11:54 BMI result Body Mass Index 27.3 Tobacco/Smoking Status: Tobacco use Status Tobacco use date assessed 07/20/25 07/20/25 11:56 Patient Tobacco Use Status Never used Tobacco 07/20/25 11:54 e-Cigarette/Vaping Use Never Used 07/20/25 11:54 Thrive Assessment: Date of Thrive Assessment Date Thrive assessed 11/10/24 07/20/25 11:51 Currently or been in a relationship where the following occur: No concerns reported Const General: no acute distress and well developed Nutritional Appearance: well nourished Orientation/consciousness: patient oriented x3 HENMT Head: Yes normocephalic and Yes atraumatic Eyes General: appearance normal, both eyes and all related structures Pupils: Equal, round and reactive pupils present EOM: EOMs intact bilaterally Resp Effort & Inspection: normal respiratory effort Auscultation: clear to auscultation bilaterally Cardio Rate: regular rate Rhythm: regular rhythm Heart sounds: S1 normal heart sound present, S2 normal heart sound present, no gallops, no murmurs and no rubs Neuro General: patient oriented x3 and gait normal Cranial nerves: Yes Equal, round and reactive pupils present Psych Affect: normal affect Coding Level of Care Code Est Pt Level 3 (42677) Diagnoses High blood pressure I10 Hyperlipidemia E78.5 Elevated fasting glucose R73.01 Assessment & Plan Assessment & Plan (1) High blood pressure: Code(s): I10 - Essential (primary) hypertension Category: Medical Plan: Blood pressure is well controlled. Goal is less than 140/90 He had noted higher blood pressures at home - this was the indication for starting losartan. He is tolerating this well and will continue current dose of 50 mg daily (2) Hyperlipidemia: Code(s): E78.5 - Hyperlipidemia, unspecified Category: Medical Plan: Patient has started atorvastatin and is tolerating it well. Has not had his lipids redrawn yet and will do so prior to next encounter. Continue atorvastatin Will follow-up on labs (3) Elevated fasting glucose: Code(s): R73.01 - Impaired fasting glucose Category: Medical Plan: Patient has had elevated fasting blood sugar but his A1c was 5.1%. Normal range. May have mild insulin resistance. Encouraged him to work on a diet lower in sugars and starches Can continue to monitor Orders: Orders AMB Hemoglobin A1c Today R73.01 - Impaired fasting glucose
[2025-07-20 11:54] VITALS: BP 126/78; PULSE 82; RESP 15; TEMP 36.2; O2SAT 99; BMI 27.3
== END 2025-07-20 12:57 | disposition home or self-care (01) ==
LOC: HO.HMCFM 11:22
PROVIDERS: PCP Family Medicine; Visit Provider Family Medicine
DX: I10 Essential (primary) hypertension (principal); E78.5 Hyperlipidemia, unspecified; R73.01 Impaired fasting glucose

== ENCOUNTER 2025-08-03 08:36 | Outpatient (REF) | payer BC, SELFPAY ==
[2025-08-03 13:46] LABS: Alanine Aminotransferase 18 U/L (0-40); Albumin Level 4.2 g/dL (3.5-5.0); Alkaline Phosphatase 77 U/L (39-117); Anion Gap 10 (12-20); Aspartate Amino Transferase 23 U/L (5-37); Blood Urea Nitrogen 14 mg/dL (9-16); Calcium 8.9 mg/dL (8.4-10.2); Carbon Dioxide 29 mmol/L (22-29); Chloride 107 mmol/L (96-108); Cholesterol 146 mg/dL (<200); Estimated Glomerular Filt Rate > 60; HDL Cholesterol 30 mg/dL (>40); Potassium 4.0 mmol/L (3.3-5.1); Sodium 142 mmol/L (135-145); Total Protein 6.6 g/dL (6.5-8.0); Triglycerides 76 mg/dL (<150)
[2025-08-03 13:48] LABS: Alanine Aminotransferase 17 U/L (0-40); Aspartate Amino Transferase 22 U/L (5-37)
== END 2025-08-03 08:37 | disposition home or self-care (01) ==
LOC: HO.WFDLDS 08:36
PROVIDERS: PCP Family Medicine; Visit Provider Internal Medicine Rheumatology
DX: Z00.00 Encounter for general adult medical examination without abnormal findings (principal); E78.6 Lipoprotein deficiency; Z79.899 Other long term (current) drug therapy
CPT/HCPCS: 36415; 80053; 80061; 84450; 84460

== ENCOUNTER 2025-08-06 10:35 | Outpatient (RCR) | payer BC, SELFPAY ==
--- NOTE | 2025-08-13 11:45 | MHC.OT.DC ---
[facility] Office [address] [facility] [address] [facility] [phone] F: [phone] F: [phone] Occupational Therapy Discharge Note Patient Name: Nick Trent Provider: Rodney Cason Diagnosis: (B)OA hand Date of Surgery: Date of Evaluation: 07/16/25 Date of Discharge: Treatments to Date: 5 Cancellations to Date: No Shows to Date: Discharge Status: Achieved Goals Improved Function Independent with HEP Discharge Summary: Patient is d/c'd from skilled OT as he has achieved all of his LTGs. Patient was a pleasure to work with, thank you for your referral. Electronically Signed By: SIRISHA Barron/Dereck, CLT Reviewed/agree with student documentation: Therapist: Please Sign and return to therapist, thank you for your referral.
== END 2025-08-13 11:46 | disposition home or self-care (01) ==
LOC: HO.OT 10:35
PROVIDERS: PCP Family Medicine; Visit Provider Internal Medicine Rheumatology
DX: M19.041 Primary osteoarthritis, right hand (principal); M19.042 Primary osteoarthritis, left hand
CPT/HCPCS: 97110; 97140; 97165; 97535